=== PATIENT | male | born 1990 | race Caucasian/White ===

== ENCOUNTER 2018-01-24 05:30 | Day surgery (SDC) | payer BC, MEDICAID ==
[~2018-01-24] VITALS: Ht 170.2 cm; Wt 90.7 kg
[~2018-01-24 05:30] MED LIST: LORA10TA7 PO
[2018-01-24] MEDS ORDERED: ONDANSETRON HCL 4 MG/2 ML VIAL IVP PRN (08:15)
[2018-01-24] MEDS ORDERED: fentaNYL CITRATE/PF 100 MCG/2 ML AMP IVP PRN ×2 (08:15)
[2018-01-24] MEDS ORDERED: MIDAZOLAM HCL 5 MG/ML VIAL (VERSED) IV ONE (08:55)
[2018-01-24] MEDS ORDERED: NS IRRIG SOLN 1000 ML IR ONE (08:55)
[2018-01-24] MEDS ORDERED: LR 1,000 ML IV.SOLN IV ONE (08:55)
[2018-01-24] MEDS ORDERED: PROPOFOL 200MG/ 20ML VIAL (DIPRIVAN) IV ONE (08:55)
[2018-01-24] MEDS ORDERED: SEVOFLURANE 15 MIN GAS INH ONE (08:55)
[2018-01-24] MEDS ORDERED: DEXAMETHASONE SOD PHOSPHATE 4 MG/ML VIAL IVP ONE (08:55)
[2018-01-24] MEDS ORDERED: NEOSTIGMINE METHYLSULFATE 1 MG/ML, 10 ML VIAL IVP ONE (08:55)
[2018-01-24] MEDS ORDERED: ROCURONIUM BROMIDE 10 MG/ML (ZEMURON) IV ONE (08:55)
[2018-01-24] MEDS ORDERED: ONDANSETRON HCL 4 MG/2 ML VIAL IVP ONE (08:55)
[2018-01-24] MEDS ORDERED: EPINEPHrine 1 MG/ML AMP IV ONE (08:55)
[2018-01-24] MEDS ORDERED: BUPIVACAINE /PF 0.25% 30 ML VIAL INJ ONE (08:55)
[2018-01-24] MEDS ORDERED: fentaNYL CITRATE/PF 100 MCG/2 ML AMP IVP ONE ×2 (08:55→09:45)
[2018-01-24] MEDS ORDERED: GLYCOPYRROLATE 0.2 MG/ML VIAL IJ ONE (08:55)
[2018-01-24] MEDS ORDERED: HYDROcodone/ACETAMIN 5-325 MG TAB (NORCO/ VICODIN) PO PRN (09:15)
[2018-01-24] MEDS ORDERED: ONDANSETRON 4 MG ODT TAB PO PRN (09:15)
[2018-01-24] MEDS ORDERED: fentaNYL CITRATE/PF 100 MCG/2 ML AMP ONE (09:50)
[2018-01-24 09:57] VITALS: BP_SYST 133
== END 2018-01-24 10:45 | disposition home or self-care (01) ==
LOC: SDS 05:30 → EDSTATUS 07:30 → EDSEX 07:30 → SDS 10:45
PROVIDERS: ATTEND Otolaryngology
DX: J35.1 Hypertrophy of tonsils (principal)
CPT/HCPCS: 42826; 88304; J0171; J1100; J2250; J2405; J2704; J2710; J3010; J3490 ×2; J7120

== ENCOUNTER 2018-02-02 06:58 | Emergency (ER) | payer BC, MEDICAID ==
[~2018-02-02] VITALS: Ht 170.2 cm; Wt 88.5 kg
[2018-02-02 07:05] VITALS: BP_SYST 125
[2018-02-02 07:35] VITALS: BP_SYST 124
== END 2018-02-02 07:35 | disposition home or self-care (01) ==
LOC: SED 06:58
DX: J95.89 Other postprocedural complications and disorders of respiratory system, not elsewhere classified (principal); J02.9 Acute pharyngitis, unspecified
CPT/HCPCS: 99283